=== PATIENT | female | born 1990 | race Caucasian/White ===

== ENCOUNTER 2025-02-27 15:30 | Outpatient (CLI) | payer BC | END 2025-02-27 15:31 | disposition home or self-care (01) | LOC: SCSRAD 15:30 | PROVIDERS: ATTEND Family Medicine Sports Medicine | DX: R76.12 Nonspecific reaction to cell mediated immunity measurement of gamma interferon antigen response without active tuberculosis (principal) | CPT/HCPCS: 71046 ==